=== PATIENT | female | born 1980 | race Hispanic/Latino ===

== ENCOUNTER 2021-02-05 09:20 | Emergency (ER) | payer SELFPAY ==
--- NOTE | 2021-02-05 10:32 | EDPHYS ---
Physician Documentation [facility] Name: Maria Del Rosario Gandhi Age: 40 yrs Sex: Female : 1980 Arrival Date: 02/05/2021 Time: 09:21 Bed 7 Private MD: ED Physician Cameron Son HPI: 02/05 10:18 This 40 yrs old Female presents to ER via Ambulatory with complaints of rn Allergic Reaction. 10:18 The patient presents with localized swelling. Onset: The symptoms/episode rn began/occurred yesterday. Associated signs and symptoms: Pertinent positives: swelling, Pertinent negatives: Altered mental status chest pain, hives, shortness of breath, Syncope. Possible causes: The patient has no known obvious cause for the symptoms. At home the patient or guardian has treated the symptoms with Benadryl. Severity of symptoms: At their worst the symptoms were mild in the emergency department the symptoms are unchanged. The patient has not experienced similar symptoms in the past. Reports began with itching and burning after using a new mascara yesterday, no drainage, no foreign body sensation, + both areas around eyes with mild swelling, no hives to any other part of body. No sob or chest pain.. 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 ca1 Historical: - Allergies: 09:31 Toradol; aa5 - Home Meds: 09:31 None [Active]; aa5 - PMHx: 09:31 None; aa5 - PSHx: 09:31 ; Cholecystectomy; Hysterectomy; aa5 - Immunization history:: Adult Immunizations unknown. - Social history:: Smoking status: Patient denies any tobacco usage or history of. - Family history:: not pertinent. - Hospitalizations: : No recent hospitalization is reported. ROS: 10:18 Constitutional: Negative for fever, chills, and weight loss, Eyes: Negative for injury, rn + mild periocular swelling Cardiovascular: Negative for chest pain, palpitations, and edema, Respiratory: Negative for shortness of breath, cough, wheezing, and pleuritic chest pain, Abdomen/GI: Negative for abdominal pain, nausea, vomiting, diarrhea, and constipation, MS/Extremity: Negative for injury and deformity, Skin: Negative for injury, rash, and discoloration, Neuro: Negative for headache, weakness, numbness, tingling, and seizure. Exam: 10:18 Constitutional: This is a well developed, well nourished patient who is awake, alert, rn and in no acute distress. Head/Face: Normocephalic, atraumatic. Eyes: Pupils equal round and reactive to light, extra-ocular motions intact. Conjunctiva and sclera are non-icteric and not injected. Cornea within normal limits. + mild periorbital swelling without warmth or erythema. Vital Signs: 09:30 BP 124 / 90; Pulse 78; Resp 20 S; Temp 98.4(O); Pulse Ox 100% on R/A; Weight 60.78 kg aa5 (R); Height 4 ft. 11 in. (149.86 cm) (R); 10:45 BP 135 / 91; Pulse 81; Resp 16 S; Pulse Ox 100% on R/A; ca1 09:30 Body Mass Index 27.06 (60.78 kg, 149.86 cm) aa5 MDM: 09:59 Patient medically screened. rn 10:30 Differential diagnosis: allergic reaction. Data reviewed: vital signs, nurses notes, rn and as a result, I will discharge patient. Counseling: I had a detailed discussion with the patient and/or guardian regarding: the historical points, exam findings, and any diagnostic results supporting the discharge/admit diagnosis, the need for outpatient follow up, to return to the emergency department if symptoms worsen or persist or if there are any questions or concerns that arise at home. Response to treatment: There is no appreciated change of the patient's symptoms at this time. Special discussion: I discussed with the patient/guardian in detail that at this point there is no indication for admission to the hospital. It is understood, however, that if the symptoms persist or worsen the patient needs to return immediately for re-evaluation. Administered Medications: 10:26 Drug: SOLU-Medrol (methylPREDNISolone sodium succinate) 125 mg Route: IM; Site: left ca1 gluteus; 10:45 Follow up: Response: No adverse reaction ca1 Disposition: 02/05/21 10:31 Discharged to Home. Impression: Localized allergic reaction. - Condition is Stable. - Prescriptions for Prednisone 20 mg Oral Tablet - take 3 tablet by ORAL route once daily for 5 days; 15 tablet. - Medication Reconciliation Form, Thank You Letter, Antibiotic Education, Prescription Opioid Use, Work release form form. - Follow up: Private Physician; When: As needed; Reason: Recheck today's complaints, Re-evaluation by your physician. - Problem is new. - Symptoms have improved. Signatures: Cameron Son MD MD rn Calderon, Audri, RN RN aa5 Gila Camp RN RN ca1 Corrections: (The following items were deleted from the chart) 10:45 10:31 02/05/2021 10:31 Discharged to Home. Impression: Localized allergic reaction. ca1 Condition is Stable. Forms are Medication Reconciliation Form, Thank You Letter, Antibiotic Education, Prescription Opioid Use. Follow up: Private Physician; When: As needed; Reason: Recheck today's complaints, Re-evaluation by your physician. Problem is new. Symptoms have improved. rn
--- NOTE | 2021-02-05 10:32 | ER ---
Nurse's Notes [facility] Name: Maria Del Rosario Gandhi Age: 40 yrs Sex: Female : 1980 Arrival Date: 02/05/2021 Time: 09:21 Bed 7 Private MD: Diagnosis: Localized allergic reaction Presentation: 02/05 09:30 Chief complaint: Patient states: "I borrowed a mascara 2 days ago and yesterday morning aa5 I woke up with my eyes all swollen and this morning they are still swollen and I kept taking Benadryl during the night because I was itching". Pt denies SOB. 09:30 Coronavirus screen: At this time, the client does not indicate any symptoms associated aa5 with coronavirus-19. Ebola Screen: Patient negative for fever greater than or equal to 101.5 degrees Fahrenheit, and additional compatible Ebola Virus Disease symptoms. Onset: The symptoms/episode began/occurred 1 day(s) ago. Anaphylaxis evaluation, no signs or symptoms of anaphylaxis were noted. Initial Sepsis Screen: Does the patient meet any 2 criteria? No. Patient's initial sepsis screen is negative. Does the patient have a suspected source of infection? No. Patient's initial sepsis screen is negative. Risk Assessment: Do you want to hurt yourself or someone else? Patient reports no desire to harm self or others. 09:30 Acuity: BLAYNE 4 aa5 09:30 Method Of Arrival: Ambulatory aa5 09:31 Onset of symptoms was February 04, 2021. 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 ca1 Historical: - Allergies: : Toradol; aa5 - Home Meds: : None [Active]; aa5 - PMHx: :31 None; aa5 - PSHx: :31 ; Cholecystectomy; Hysterectomy; aa5 - Immunization history:: Adult Immunizations unknown. - Social history:: Smoking status: Patient denies any tobacco usage or history of. - Family history:: not pertinent. - Hospitalizations: : No recent hospitalization is reported. Screenin:00 Abuse screen: Denies threats or abuse. Denies injuries from another. Nutritional ca1 screening: No deficits noted. Tuberculosis screening: No symptoms or risk factors identified. Fall Risk None identified. Assessment: 10:00 General: Appears in no apparent distress. comfortable, Behavior is calm, cooperative, ca1 appropriate for age. Pain: Denies pain. Neuro: Level of Consciousness is awake, alert, obeys commands, Oriented to person, place, time, situation. Respiratory: Airway is patent Respiratory effort is even, unlabored, Respiratory pattern is regular, symmetrical, Breath sounds are clear bilaterally. EENT: Eyes Edi upper and lower eyelids swelling. Derm: Skin is intact, is healthy with good turgor, Skin is pink, warm \\T\\ dry. Musculoskeletal: Circulation, motion, and sensation intact. Capillary refill < 3 seconds. 10:45 Reassessment: Patient appears in no apparent distress at this time. Patient is alert, ca1 oriented x 3, equal unlabored respirations, skin warm/dry/pink. Vital Signs: 09:30 BP 124 / 90; Pulse 78; Resp 20 S; Temp 98.4(O); Pulse Ox 100% on R/A; Weight 60.78 kg aa5 (R); Height 4 ft. 11 in. (149.86 cm) (R); 10:45 BP 135 / 91; Pulse 81; Resp 16 S; Pulse Ox 100% on R/A; ca1 09:30 Body Mass Index 27.06 (60.78 kg, 149.86 cm) aa5 ED Course: 09:21 Patient arrived in ED. am2 09:30 Arm band placed on. aa5 09:33 Triage completed. aa5 09:59 Cameron Son MD is Attending Physician. rn 10:00 Patient has correct armband on for positive identification. Bed in low position. Call ca1 light in reach. Side rails up X 1. Pulse ox on. NIBP on. 10:08 Gila Camp, JUSTINE is Primary Nurse. ca1 10:44 No provider procedures requiring assistance completed. Patient did not have IV access ca1 during this emergency room visit. Administered Medications: 10:26 Drug: SOLU-Medrol (methylPREDNISolone sodium succinate) 125 mg Route: IM; Site: left ca1 gluteus; 10:45 Follow up: Response: No adverse reaction ca1 Outcome: 10:31 Discharge ordered by . rn 10:45 Discharged to home ambulatory. ca1 10:45 Condition: stable 10:45 Discharge instructions given to patient, Instructed on discharge instructions, follow up and referral plans. medication usage, Demonstrated understanding of instructions, follow-up care, medications, Prescriptions given X 1. 10:45 Patient left the ED. ca1 Signatures: Cameron Son MD MD rn Calderon, Audri RN RN aa5 Cookie Monaco Cheryl RN RN ca1 Corrections: (The following items were deleted from the chart) 09:33 09:31 60.78 kg Reported; Height 4 ft. 11 in. Reported; BMI: 27.0; adrian [email or web address]
[2021-02-05] MEDS ORDERED: METHYLPREDNISOLONE 125 MG INJ ONE (10:42)
[2021-02-05 10:50] VITALS: TEMP 98.4; O2SAT 100
[2021-02-05 10:51] VITALS: BP 135/91
== END 2021-02-05 10:45 | disposition home or self-care (01) ==
LOC: ER 09:20
DX: R22.9 Localized swelling, mass and lump, unspecified (principal); Z88.5 Allergy status to narcotic agent
CPT/HCPCS: 96372; 99283; J2930

== ENCOUNTER 2023-07-10 08:28 | Emergency (ER) | payer BC ==
--- OUTSIDE RECORDS SUMMARY | 2023-07-10 08:35 | XMS REPORT | Continuity of Care Document ---
:1980 Author Organization [facility] t Address [address] [place] [address] Care Team Providers Name Role Phone Unavailable Unavailable Unavailable Problems This patient has no known problems. Allergies, Adverse Reactions, Alerts This patient has no known allergies or adverse reactions. Medications This patient has no known medications. Procedures This patient has no known procedures. Results Test Description Test Time Test Comments Results Result Comments Source MUMPS IgG AND IgM 2021-12-12 23:06:48 Test Item Value Reference Range Interpretation Comme nts MUMPS VIRUS IgG (test code 15.0 AU/mL I NTERPRETIVE INFORMATION: Mumps = 01416) Ab, IgG by BERNARDO 8.9 AU/mL or less .... Negative - No significant level of detect able IgG mumps virus antibody 9.0-10.9 AU/mL ....... Equivoc al - Repeat testing in 10-1 4 days may be helpful 11.0 AU /mL or greater: Positive - IgG antibody to mumps virus detected, which may indicate a cur rent or past exposure/ immun ization to mumps virus. The best evidence for current infecti on is a significant roscoe nge on two appropriately t imed specimens, where both test s are done in the same laboratory at the same time. TESTING PERFORM ED AT [facility] [address] [place] [id number] [place] [id number] CLIA N O. [id number] MUMPS VIRUS IgM (test code 1.57 IV See_Comment H I NTERPRETIVE INFORMATION: Mumps = 4587) Virus Antibody, IgM 0.79 IV or less: Negative - No significant level of detect able IgM antibody to mumps virus. 0.80 - 1.20 IV: Equivocal - Bor derline levels of IgM antibody to mumps virus. Repeat testing in 10-14 days may be helpful. 1.2 1 IV or greater: Positive - Pres ence of IgM antibody to mum ps virus detected, which may indic ate a current or recent infectio n. However, low levels of IgM antibody may occasionally pe rsist for more than 12 months post-infection or immunization. T ESTING PERFORMED AT [facility] [place] [address], [place] [address] [place]. [id number] CL IA NO. [id number] [Automated mess age] The system which generated this result transmitted ref erence range: <=0.79. The ref erence range was not used to int erpret this result as normal/abnor mal. RUBEOLA IgG [id number] 15:19:24 Test Item Value Reference Range Interpretation Comments RUBEOLA IgG 231.0 AU/ML SEE BELOW INTERPRETATION RUBEOLA ANTIBODY (test IgG NEGATIVE . . . . . . code = 49098) . . . . . . AU /ML <13.5 EQUIVOCAL. . . . . . . . . . . . AU/ML 1 3.5-16.4 NOTE: CONSIDER RETESTING IN A CLINICALLY SUITABLE PERIOD OF TIME, NO SOONER THAN 1-2 WEEKS. POSITIVE . . . . . . . . . . . . AU/ML > =16.5 VARICELLA ZOSTER [id number] 15:19:24 Test Item Value Reference Range Interpretation Comments VARICELLA ZOSTER 1043 INDEX SEE BELOW INTERPRETA TION VZV IgG IgG (test code = NEGATIVE . . . . . . . . 76333) . . . . INDEX < 135 EQUIVOCAL. . . . . . . . . . . . INDEX 1 35-164 NOTE: CONSIDER RETESTING IN A CLINICALLY SUITABLE PERIOD OF TIME, NO SOONER THAN 1-2 WEEKS. POSITIVE . . . . . . . . . . . . INDEX > =165 RUBELLA ANTIBODY [id number] 05:05:45 Test Item Value Reference Range Interpretation Comments RUBELLA ANTIBODY 52 IU/ML SEE BELOW INTERPRETA TION RUBELLA SCREEN (test code = IgG 4600) NON-REACTIVE/NO N-IMMUNE . . . . . . . IU/ ML <10 REACTIVE/IMMUNE . . . . . . . . . . . IU/ ML >=10 RUBELLA IgG INTERP REACTIVE REACTIVE UNLESS O THERWISE (test code = 50554) INDICATE D, ALL TESTING [facility]FORMED [facility] [address] [facility] [address] LABOR ATORY DIRECTOR: ELIDIA LOREDO M.D. NED NUMBER [id number] CAP ACCREDITATION N O. [id number]
--- NOTE | 2023-07-10 09:16 | RAD REPORT ---
EXAM DESCRIPTION: CT - Head Brain Wo Cont - 07/10/2023 8:55 am CLINICAL HISTORY: NUMBNESS COMPARISON: No comparisons TECHNIQUE: Noncontrast head CT images were obtained without IV contrast. Multiplanar reformats were generated and reviewed. All CT scans are performed using dose optimization technique as appropriate and may include automated exposure control or mA/KV adjustment according to patient size. FINDINGS: No intracranial hemorrhage, mass, or edema. Midline structures are unremarkable. Normal ventricular caliber for age. Hernández-white matter differentiation is preserved, without evidence of acute infarct. No abnormal extra- axial fluid collections. Mastoid air cells and visualized portions of the paranasal sinuses are clear. No acute bony findings. IMPRESSION: No evidence of an acute intracranial process.
[2023-07-10 09:24] LABS: Absolute Lymphocytes (CBC) 1.4 K/uL (0.7-4.9); Hematocrit 37.3 % (36.0-45.0); Lymphocytes % 26.5 % (15.3-44.8); MPV 8.3 fL (7.6-11.3); Platelets 293 thou/uL (152-406)
[2023-07-10] MEDS ORDERED: ASPIRIN 81 MG CHEWABLE TABLET ONE (09:34)
[2023-07-10] MEDS ORDERED: DIAZEPAM 5 MG TABLET ONE (09:34)
[2023-07-10 09:35] LABS: Protime INR 0.94
[2023-07-10 09:44] LABS: ALT/SGPT 31 U/L (13-56); AST/SGOT 19 U/L (15-37); Albumin 3.5 g/dL (3.4-5.0); Alkaline Phosphatase 67 U/L (45-117); BUN Blood Urea Nitrogen 13 mg/dL (7-18); Bicarbonate 23 mEq/L (21-32); Bilirubin Direct 0.1 mg/dL (0-0.2); Bilirubin Indirect, Calculated 0.3 mg/dL (0.2-0.8); Bilirubin Total 0.4 mg/dL (0.2-1.0); Glomerular Filtration Rate 104 ml/min (=/>90); Glucose Level 101 mg/dL (74-106); NT PRO-BNP 36 pg/mL (<125); Potassium 3.8 mEq/L (3.5-5.1); Protein, Total 7.4 g/dL (6.4-8.2); Sodium Level 137 mEq/L (136-145); Troponin High Sensitivity < 3.0 pg/mL (<58.9)
--- NOTE | 2023-07-10 10:21 | RAD REPORT ---
EXAM DESCRIPTION: [place] Single View07/10/2023 9:51 am CLINICAL HISTORY: CHEST PAIN COMPARISON: No comparisons TECHNIQUE: Portable AP view of the chest. FINDINGS: Streaky bibasilar opacities, which may reflect atelectasis or early pneumonia. No pneumot horax or effusion. The cardiomediastinal contours are unremarkable. IMPRESSION: Streaky bibasilar mild opacities which may reflect atelectasis or early pneumonia.
--- NOTE | 2023-07-10 11:02 | EDPHYS ---
Physician Documentation [facility] Name: Maria Del Rosario Joseph Age: 42 yrs Sex: Female : 1980 Arrival Date: 07/10/2023 Time: 08:28 Bed 16 Private MD: MARGAUX Physician Wili Garcia HPI: 07/10 11:54 This 42 yrs old Female presents to ER via Ambulatory with complaints of snw Numbness Of Arm, Leg numbness, Chest Tightness, Shortness Of Breath. 11:54 The patient or guardian reports airway noise, cough, upper resp symptoms x 1 week, this snw am pt awoke with chest discomfort and numbness down left extremities. Onset: The symptoms/episode began/occurred gradually, 1 week(s) ago, and became persistent. Associated signs and symptoms: Pertinent positives: nausea, rhinorrhea, cough. Severity of symptoms: At their worst the symptoms were moderate. It is unknown whether or not the patient has had similar symptoms in the past. The patient has not recently seen a physician. hx of anxiety and RA. Historical: - Allergies: 08:38 Toradol; ll1 - PMHx: 08:38 RA; ll1 - PSHx: 08:38 Cholecystectomy; section; hysterectomy; ll1 - Immunization history:: Adult Immunizations up to date. - Social history:: Smoking status: Reported history of juuling and/or vaping. Patient/guardian denies using tobacco, the patient reports quitting approximately 3 years ago. ROS: 10:02 Eyes: Negative for injury, pain, redness, and discharge, ENT: Negative for injury, snw pain, and discharge, Neck: Negative for injury, pain, and swelling, 10:02 Abdomen/GI: Negative for abdominal pain, nausea, vomiting, diarrhea, and constipation, Back: Negative for injury and pain, : Negative for injury, bleeding, discharge, and swelling, MS/Extremity: Negative for injury and deformity, Skin: Negative for injury, rash, and discoloration, 10:02 Constitutional: Positive for body aches, 10:02 Cardiovascular: Positive for chest pain, 10:02 Respiratory: Positive for shortness of breath, at rest. 10:02 Neuro: Positive for numbness, of the left leg and left arm, Exam: 10:01 Constitutional: This is a well developed, well nourished patient who is awake, alert, snw and in no acute distress. Head/Face: Normocephalic, atraumatic. Eyes: Pupils equal round and reactive to light, extra-ocular motions intact. Lids and lashes normal. Conjunctiva and sclera are non-icteric and not injected. Cornea within normal limits. Periorbital areas with no swelling, redness, or edema. ENT: Nares patent. No nasal discharge, no septal abnormalities noted. Tympanic membranes are normal and external auditory canals are clear. Oropharynx with no redness, swelling, or masses, exudates, or evidence of obstruction, uvula midline. Mucous membranes moist. Neck: Trachea midline, no thyromegaly or masses palpated, and no cervical lymphadenopathy. Supple, full range of motion without nuchal rigidity, or vertebral point tenderness. No Meningismus. Chest/axilla: Normal chest wall appearance and motion. Nontender with no deformity. No lesions are appreciated. Cardiovascular: Regular rate and rhythm with a normal S1 and S2. No gallops, murmurs, or rubs. Normal PMI, no JVD. No pulse deficits. 10:01 Abdomen/GI: Soft, non-tender, with normal bowel sounds. No distension or tympany. No guarding or rebound. No evidence of tenderness throughout. Back: No spinal tenderness. No costovertebral tenderness. Full range of motion. Skin: Warm, dry with normal turgor. Normal color with no rashes, no lesions, and no evidence of cellulitis. MS/ Extremity: Pulses equal, no cyanosis. Neurovascular intact. Full, normal range of motion. Neuro: Awake and alert, GCS 15, oriented to person, place, time, and situation. Cranial nerves II-XII grossly intact. Motor strength 5/5 in all extremities. Sensory grossly intact. Cerebellar exam normal. Normal gait. 10:01 Respiratory: the patient does not display signs of respiratory distress, Respirations: normal, Breath sounds: are clear throughout, 10:01 Psych: Behavior/mood is pleasant, anxious, Oriented to Vital Signs: 08:39 BP 158 / 117; Pulse 69; Resp 16; Temp 97.9; Pulse Ox 99% ; Weight 63.05 kg; Height 4 ll1 ft. 11 in. ; Pain 2/10; 09:00 BP 136 / 104; Pulse 71; Resp 18; Pulse Ox 97% on R/A; eh3 09:30 BP 135 / 98; Pulse 67; Resp 18; Pulse Ox 98% on R/A; eh3 10:00 BP 125 / 95; Pulse 66; Resp 18; Pulse Ox 96% on R/A; eh3 10:30 BP 118 / 86; Pulse 65; Resp 18; Pulse Ox 96% on R/A; eh3 08:39 Body Mass Index 28.07 (63.05 kg, 149.86 cm) ll1 08:39 Pain Scale: Adult ll1 MDM: 08:34 Patient medically screened. snw 11:53 Differential diagnosis: bronchitis, flu, URI, asthma. Data reviewed: vital signs, snw nurses notes, lab test result(s), EKG, radiologic studies. I considered the following discharge prescriptions or medication management in the emergency department Medications were administered in the Emergency Department. See MAR. Counseling: I had a detailed discussion with the patient and/or guardian regarding the historical points, exam findings, and any diagnostic results supporting the discharge/admit diagnosis, lab results, radiology results, the need for outpatient follow up, to return to the emergency department if symptoms worsen or persist or if there are any questions or concerns that arise at home. Response to treatment: the patient's symptoms have markedly improved after treatment. Special discussion: Based on the history and exam findings, there is no indication for further emergent testing or inpatient evaluation. I discussed with the patient/guardian the need to see the primary care provider for further evaluation of the symptoms. 07/10 08:47 Order name: Basic Metabolic Panel; Complete Time: 09:46 snw 07/10 08:47 Order name: CBC with Diff; Complete Time: 09:34 snw 07/10 08:47 Order name: D-Dimer; Complete Time: 09:41 snw 07/10 08:47 Order name: LFT's; Complete Time: 09:46 snw 07/10 08:47 Order name: Magnesium; Complete Time: 09:46 snw 07/10 08:47 Order name: NT PRO-BNP; Complete Time: 09:46 snw 07/10 08:47 Order name: PT-INR; Complete Time: 09:41 snw 07/10 08:47 Order name: Troponin HS; Complete Time: 09:46 snw 07/10 08:47 Order name: XRAY Chest (1 view); Complete Time: 10:44 snw 07/10 08:47 Order name: CT Head Brain wo Cont; Complete Time: 09:28 snw 07/10 08:47 Order name: EKG; Complete Time: 08:48 snw 07/10 08:47 Order name: Cardiac monitoring; Complete Time: 09:18 snw 07/10 08:47 Order name: EKG - Nurse/Tech; Complete Time: 09:27 snw 07/10 08:47 Order name: IV Saline Lock; Complete Time: 09:18 snw 07/10 08:47 Order name: Labs collected and sent; Complete Time: 09:18 snw 07/10 08:47 Order name: O2 Per Protocol; Complete Time: 09:18 snw 07/10 08:47 Order name: O2 Sat Monitoring; Complete Time: 09:18 snw EC:30 Rate is 66 beats/min. Rhythm is regular. QRS [place] is Normal. NV interval is normal. QRS snw interval is normal. QT interval is normal. Clinical impression: NSR w/ Non-specific ST/T Changes. Administered Medications: 09:27 Drug: Diazepam PO 10 mg PO once Route: PO; 3 11:07 Follow up: Response: No adverse reaction 3 09:27 Drug: Aspirin PO Chewable Tablet 324 mg PO once; 81 mg tablets x 4 Route: PO; eh3 11:08 Follow up: Response: No adverse reaction 3 10:55 Drug: Rocephin IV 1 grams IV at calculated rate once; Given slow IV push per pharmacy eh3 instructions Route: IV; Rate: calculated rate; Site: right antecubital; 11:10 Follow up: Response: No adverse reaction; IV Status: Completed infusion; IV Intake: [id number] 10:55 Drug: AZITHromycin PO 500 mg PO once Route: PO; 3 11:10 Follow up: Response: No adverse reaction eh3 Disposition Summary: 07/10/23 11:02 Discharge Ordered Notes: Location: Home snw Condition: Stable snw Diagnosis - Other pneumonia, unspecified organism snw Followup: snw - With: Emergency Department - When: As needed - Reason: Worsening of condition Followup: snw - With: Private Physician - When: Today - Reason: Recheck today's complaints, Continuance of care, Re-evaluation by your physician Discharge Instructions: - Discharge Summary Sheet snw - Community-Acquired Pneumonia, Adult snw Forms: - Work release form snw - Medication Reconciliation Form snw - Thank You Letter snw - Antibiotic Education snw - Prescription Opioid Use snw - Patient Portal Instructions snw - Leadership Thank You Letter snw Prescriptions: - albuterol sulfate 90 mcg/actuation Inhalation HFA Aerosol Inhaler - inhale 2 inhalation INHALATION route every 8 hours as needed for shortness of snw breath or wheezing; 1 Unspecified; Refills: 0, Product Selection Permitted - Zithromax 500 mg Oral Tablet - take 1 tablet ORAL route once daily for 5 days; 5 tablet; Refills: 0, Product snw Selection Permitted Signatures: Dispatcher [employer] EDMounika Young FNP-C FNP-[place] Elida Whaley, RN RN ll1 Chhaya Wooten RN RN eh3
--- NOTE | 2023-07-10 11:02 | ER ---
Nurse's Notes [facility] Name: Maria Del Rosario Joseph Age: 42 yrs Sex: Female : 1980 Arrival Date: 07/10/2023 Time: 08:28 Bed 16 Private MD: Diagnosis: Other pneumonia, unspecified organism Presentation: 07/10 08:39 Chief complaint: Patient states: SOB, slight cough, chest pressure since Sunday. Awoke ll1 today with L arm and leg felt numb 5 AM. + fatigue, dizzy today. Coronavirus screen: Client denies travel out of the [place] in the last 14 days. cough unrelated to allergies, difficulty breathing, fatigue, shortness of breath, Client presents with at least one sign or symptom that may indicate coronavirus-19. Standard/surgical mask placed on the client. Ebola Screen: Patient denies travel to an Ebola-affected area in the 21 days before illness onset. Initial Sepsis Screen: Does the patient meet any 2 criteria? No. Patient's initial sepsis screen is negative. Does the patient have a suspected source of infection? Yes: Productive cough/pneumonia. Risk Assessment: Do you want to hurt yourself or someone else? Patient reports no desire to harm self or others. Onset of symptoms was July 06, 2023. 08:39 Method Of Arrival: Ambulatory ll1 08:39 Acuity: BLAYNE 3 ll1 Triage Assessment: 08:41 General: Appears uncomfortable, Behavior is calm, cooperative, appropriate for age. ll1 Pain: Complains of pain in chest Pain currently is 2 out of 10 on a pain scale. Neuro: Reports dizziness, numbness in left arm and left leg weakness. Cardiovascular: Reports chest pain, shortness of breath. Respiratory: Reports shortness of breath cough that is. Historical: - Allergies: 08:38 Toradol; ll1 - PMHx: 08:38 RA; ll1 - PSHx: 08:38 Cholecystectomy; section; hysterectomy; ll1 - Immunization history:: Adult Immunizations up to date. - Social history:: Smoking status: Reported history of juuling and/or vaping. Patient/guardian denies using tobacco, the patient reports quitting approximately 3 years ago. Screenin:00 [facility] ED Fall Risk Assessment (Adult) Score/Fall Risk Level 0 - 2 = Low Risk. Abuse eh3 screen: Denies threats or abuse. Denies injuries from another. Nutritional screening: No deficits noted. Tuberculosis screening: No symptoms or risk factors identified. Assessment: 09:00 General: Appears in no apparent distress. uncomfortable, Behavior is calm, cooperative, eh3 appropriate for age. Pain: Complains of pain in chest Pain radiates to left arm Pain began 4 hours ago. Neuro: Level of Consciousness is awake, alert, obeys commands, Oriented to person, place, time, situation, Speech is normal, Facial symmetry appears normal, Pupils are PERRLA, Reports numbness in left arm and left leg. Cardiovascular: Capillary refill < 3 seconds Patient's skin is warm and dry. Respiratory: Airway is patent Respiratory effort is even, unlabored, Respiratory pattern is regular, symmetrical. GI: Abdomen is round non-distended. Derm: Skin is pink, warm \T\ dry. Musculoskeletal: Range of motion: intact in all extremities. 10:00 Reassessment: Patient appears in no apparent distress at this time. Patient and/or 3 family updated on plan of care and expected duration. Pain level reassessed. Patient is alert, oriented x 3, equal unlabored respirations, skin warm/dry/pink. 11:00 Reassessment: Patient appears in no apparent distress at this time. Patient and/or eh3 family updated on plan of care and expected duration. Pain level reassessed. Patient is alert, oriented x 3, equal unlabored respirations, skin warm/dry/pink. Vital Signs: 08:39 BP 158 / 117; Pulse 69; Resp 16; Temp 97.9; Pulse Ox 99% ; Weight 63.05 kg; Height 4 ll1 ft. 11 in. ; Pain 2/10; 09:00 BP 136 / 104; Pulse 71; Resp 18; Pulse Ox 97% on R/A; eh3 09:30 BP 135 / 98; Pulse 67; Resp 18; Pulse Ox 98% on R/A; eh3 10:00 BP 125 / 95; Pulse 66; Resp 18; Pulse Ox 96% on R/A; eh3 10:30 BP 118 / 86; Pulse 65; Resp 18; Pulse Ox 96% on R/A; eh3 08:39 Body Mass Index 28.07 (63.05 kg, 149.86 cm) ll1 08:39 Pain Scale: Adult ll1 ED Course: 08:32 Patient arrived in ED. mr 08:35 Mounika Fernandez[facility] snw 08:35 Wili Garcia MD is Attending Physician. snw 08:38 Arm band placed on Patient placed in an exam room, on a stretcher. ll1 08:41 Triage completed. ll1 08:57 CT Head Brain wo Cont In Process Unspecified. EDMS 09:00 Chhaya Wooten, RN is Primary Nurse. eh3 09:00 Patient has correct armband on for positive identification. Bed in low position. Call eh3 light in reach. Side rails up X2. Provided Education on: Use of call zapata. Client placed on continuous cardiac and pulse oximetry monitoring. NIBP monitoring applied. 09:00 Inserted saline lock: 22 gauge in left antecubital area, using aseptic technique. eh3 Completed by college staff. Patient maintains SpO2 saturation greater than 95% on room air. 09:53 XRAY Chest (1 view) In Process Unspecified. EDMS 11:10 No provider procedures requiring assistance completed. IV discontinued, intact, eh3 bleeding controlled, No redness/swelling at site. Pressure dressing applied. Administered Medications: 09:27 Drug: Diazepam PO 10 mg PO once Route: PO; eh3 11:07 Follow up: Response: No adverse reaction eh3 09:27 Drug: Aspirin PO Chewable Tablet 324 mg PO once; 81 mg tablets x 4 Route: PO; eh3 11:08 Follow up: Response: No adverse reaction eh3 10:55 Drug: Rocephin IV 1 grams IV at calculated rate once; Given slow IV push per pharmacy eh3 instructions Route: IV; Rate: calculated rate; Site: right antecubital; 11:10 Follow up: Response: No adverse reaction; IV Status: Completed infusion; IV Intake: 42yyan2 10:55 Drug: AZITHromycin PO 500 mg PO once Route: PO; eh3 11:10 Follow up: Response: No adverse reaction eh3 Medication: 11:10 VIS not applicable for this client. eh3 Intake: 11:10 IV: 10ml; Total: 10ml. eh3 Outcome: 11:02 Discharge ordered by . snw 11:10 Discharged to home ambulatory, with family, eh3 11:10 Condition: stable 11:10 Discharge instructions given to patient, Instructed on discharge instructions, follow up and referral plans. medication usage, Demonstrated understanding of instructions, follow-up care, medications, Prescriptions given X 2, 11:23 Patient left the ED. 3 Signatures: Dispatcher [employer] EDMounika Young, SUNNI BUTCHER FISH-Deja Pozo, Reg Reg Maria G Gastontwyla, RN RN ll1 Chhaya Wooten, RN RN 3 Corrections: (The following items were deleted from the chart) 09:59 09:18 Chhaya Wooten RN is Primary Nurse. 3 eh3
[2023-07-10] MEDS ORDERED: CEFTRIAXONE 1000 MG/VIAL ONE (11:06)
[2023-07-10] MEDS ORDERED: AZITHROMYCIN 250 MG TAB ONE (11:06)
[2023-07-10 11:31] VITALS: TEMP 97.9
[2023-07-10 11:34] VITALS: O2SAT 96
[2023-07-10 11:36] VITALS: BP 118/86
--- NOTE | 2023-07-10 12:48 | EKG ---
Test Date: 2023-07-10 Test Time: 09:30:59 [employer] Installer: ELMIRA MEASUREMENT RESULTS: Intervals: Rate: 66 KS: 162 QRSD: 84 QT: 422 QTc: 442 [place]: P: 50 KS: 162 QRS: 78 T: 60 INTERPRETIVE STATEMENTS: Normal sinus rhythm Normal ECG No previous ECG available for comparison Electronically Signed On 07-10-23 12:47:55 CDT by Amando Piña
== END 2023-07-10 11:23 | disposition home or self-care (01) ==
LOC: ER 08:28
DX: J18.8 Other pneumonia, unspecified organism (principal); Z88.5 Allergy status to narcotic agent
CPT/HCPCS: 93005; 85025; 80048; 36415; 83735; 85610; 85379; 80076; 84484; 83880; 70450; 71045; 96374; 99285; J0696

== ENCOUNTER 2024-01-02 17:32 | Inpatient (IN) | payer BC ==
--- OUTSIDE RECORDS SUMMARY | 2024-01-02 17:35 | XMS REPORT | Continuity of Care Document ---
Author Name Unknown Address [address] [facility] [address] [place] [address] [facility] [address] [facility] [address] [place] [address] Care Team Providers Care Guide Escort Name Role Phone [email or web address] Attending Clinician Unavaila ble [email or web address] Admitting Clinician Unavaila ble Encounters Start Date/Time End Date/Time Encounter Type Admission Type Attending Clinicians Care Facility Care Department Encounter ID Source 2023-08-07 00:00:00 2023-08-07 00:00:00 Outpatient [email or web address] [email or web address]_S PRIV PRIV [id number] [facility] 2023-08-06 00:00:00 2023-08-06 00:00:00 Outpatient [email or web address] [email or web address]_S PRIV PRIV [id number] [facility] Results Test Description Test Time Test Comments Results Result Co mments Source RUBEOLA IgG [id number] 15:19:24* Test Item Value Reference Range Interpretation Comme nts RUBEOLA IgG ANTIBODY (test code = 91623) 231.0 AU/ML SEE BELOW INTERPRETATION R UBEOLA IgG NEGATIVE . . . . . . . . . . . . AU/ML <13.5 EQUIVOCAL. . . . . . . . . . . . AU/ML 13.5-16.4 NOTE: CONSIDER RETESTING IN A CLINICALLY SUITABLE PERIOD OF TIME, NO SOONER THAN 1-2 WEEKS. POSITIVE . . . . . . . . . . . . AU/ML >=16.5 VARICELLA ZOSTER [id number] 15:19:24* Test Item Value Reference Range Interpretation Comme nts VARICELLA ZOSTER IgG (test code = 59143) 1043 INDEX SEE BELOW INTERPRETATION V ZV IgG NEGATIVE . . . . . . . . . . . . INDEX <135 EQUIVOCAL. . . . . . . . . . . . INDEX 135-164 NOTE: CONSIDER RETESTING IN A CLINICALLY SUITABLE PERIOD OF TIME, NO SOONER THAN 1-2 WEEKS. POSITIVE . . . . . . . . . . . . INDEX >=165 RUBELLA ANTIBODY [id number] 05:05:45* Test Item Value Reference Range Interpretation Comme nts RUBELLA ANTIBODY SCREEN (test code = 4600) 52 IU/ML SEE BELOW INTERPRETATION R UBELLA IgG NON-REACTIVE/NON-IMMUNE . . . . . . . IU/ML <10 REACTIVE/IMMUNE . . . . . . . . . . . IU/ML >=10 RUBELLA IgG INTERP (test code = 61317) REACTIVE REACTIVE UNLESS OTHER [place] INDICATED, ALL TESTING PERFORMED [facility] [address] [place] [id number] SPOOLING OPERATOR: ELIDIA LOREDO M.D. [place] NUMBER [id number] [facility] [place]. [id number]
[2024-01-02 18:14] LABS: Specific Gravity 1.011 (1.005-1.030)
[2024-01-02 18:18] LABS: Specific Gravity 1.011 (1.005-1.030); Sqamous Epithelial <5 /HPF (None Seen); Urine Bacteria <20 /HPF (<20); Urine Bilirubin NEGATIVE (Negative); Urine Blood 1+ (Negative); Urine Clarity Extremely Turbid (Clear); Urine Color Light-Yellow (Yellow); Urine Culture Reflex Order REFLEXED; Urine Glucose NEGATIVE (Negative); Urine Ketones NEGATIVE (Negative); Urine Microscopic Reflex YN ORDER UMIC; Urine Mucus Slight /HPF (None Seen); Urine Nitrite 2+ (Negative); Urine Protein TRACE (Negative); Urine Urobilinogen Normal (Normal); Urine WBC >50 /HPF (<5); Urine WBC Clump Occasional /HPF (None Seen); Urine pH 5.5 (5.0-7.0)
[2024-01-02 18:31] LABS: Absolute Lymphocytes (CBC) 0.4 K/uL (0.7-4.9); Absolute Neutrophil 5.8 K/uL (1.8-8.0); Basophils % 0.2 % (0-1.3); Eosinophils % 0.3 % (0-4.4); Hematocrit 34.5 % (36.0-45.0); Hemoglobin 11.9 g/dL (12.0-15.0); MCH 30.9 pg (27.0-35.0); MCHC 34.4 g/dL (32.0-36.0); MCV 89.7 fL (80-100); MPV 7.8 fL (7.6-11.3); Monocytes % 0.6 % (3.3-12.3); Neutrophils % 92.9 % (41.7-73.7); Nucleated Red Blood Cells % 0.1 % (0-0); Platelets 273 thou/uL (152-406); RBC Red Blood Cell Count 3.85 M/uL (3.86-4.86); Red Cell Distribution Width 13.7 % (12.1-15.2)
[2024-01-02 18:35] LABS: PT Prothrombin Time 12.7 SECONDS (9.5-12.5); PTT, Activated Partial Thromb 24.8 SECONDS (24.3-36.9); Protime INR 1.16
[2024-01-02 18:45] LABS: Albumin 3.4 g/dL (3.4-5.0); Albumin/Globulin Ratio 0.8 (1.1-1.8); Anion Gap 11.3 mEq/L (5.0-15.0); Bilirubin Total 1.8 mg/dL (0.2-1.0); Globulin 4.4 g/dL (2.3-3.5); Potassium 3.3 mEq/L (3.5-5.1); Protein, Total 7.8 g/dL (6.4-8.2)
--- NOTE | 2024-01-02 18:55 | RAD REPORT ---
EXAM DESCRIPTION: [place] Single View01/02/2024 6:42 pm CLINICAL HISTORY: Fever COMPARISON: 2022 FINDINGS: The lungs appear clear of acute infiltrate. The heart is normal size IMPRESSION: No acute abnormalities displayed
[2024-01-02 19:42] LABS: Blood Morphology Comment NOT SEEN (NOT SEEN); Platelet Estimate ADEQ; White Blood Cell Scan OK (OK)
--- NOTE | 2024-01-02 19:42 | RAD REPORT ---
EXAM DESCRIPTION: CT - Abdomen Pelvis W Contrast - 01/02/2024 7:05 pm CLINICAL HISTORY: Abdominal pain/flank pain COMPARISON: none. TECHNIQUE: Computed axial tomography of the abdomen pelvis was obtained. 100 cc Isovue-300 was admin istered intravenously. Oral contrast was not requested which limits evaluation of bowel and appendix All CT scans are performed using dose optimization technique as appropriate and may include automated exposure control or mA/KV adjustment according to patient size. 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 The wall of the right ureters enhance. The spleen, pancreas, adrenals and kidneys unremarkable Normal appendix. No evidence of diverticulitis. An adnexal mass. Cholecystectomy IMPRESSION: Enhancement of the wall of the right ureters probably indicating infection
--- NOTE | 2024-01-02 20:01 | EDPHYS ---
Physician Documentation [facility] Name: Maria Del Rosario Joseph Age: 43 yrs Sex: Female : 1980 Arrival Date: 01/02/2024 Time: 17:32 Bed 13 Private MD: ED Physician Wili Garcia HPI: 01/01 18:39 This 43 yrs old Female presents to ER via Ambulatory with complaints of Fever, kb body aches. 18:39 Pt is a 43 year old female who presents for fever and bodyaches that started yesterday. kb Denies cough, congestion, abd pain, n/v/d. States the pain is worse in her back and she may have a little pressure with urination, but denies any other urinary symptoms. States symptoms improved with tylenol arthritis, but started to return and it is too early to take more. . Historical: - Allergies: 17:45 Toradol; hb - PMHx: 17:45 RA; hb - PSHx: 17:45 section; Cholecystectomy; hysterectomy; hb - Immunization history:: Adult Immunizations up to date. - Social history:: Smoking status: Patient denies any tobacco usage or history of. ROS: 18:38 Constitutional: As per HPI kb Exam: 18:38 Constitutional: This is a well developed, well nourished patient who is awake, alert, kb and in no acute distress. Head/Face: Normocephalic, atraumatic. ENT: Moist Mucous membranes Respiratory: Respirations even and unlabored. No increased work of breathing. Talking in full sentences Abdomen/GI: Soft, non-tender. No distention Skin: Warm, dry with normal turgor. Normal color. MS/ Extremity: Pulses equal, no cyanosis. Neurovascular intact. Full, normal range of motion. Neuro: Awake and alert, GCS 15, oriented to person, place, time, and situation. Moves all extremities. Normal gait. 18:38 Cardiovascular: Rate: tachycardic, 18:38 ECG was reviewed by the Attending Physician. 18:38 Back: CVA tenderness, that is mild, is noted bilaterally, Vital Signs: 17:44 BP 142 / 97; Pulse 144; Resp 20; Temp 99.5(O); Pulse Ox 99% ; Weight 66.22 kg; Height 4 hb ft. 11 in. ; Pain 9/10; 17:58 Temp 99.1(O); ld1 18:09 Temp 99.1(O); ld1 18:28 BP 138 / 85; Pulse 119; Resp 18; Pulse Ox 100% on R/A; ld1 19:27 BP 102 / 70; Pulse 115; Resp 16; Pulse Ox 99% on R/A; ld1 20:30 BP 100 / 71; Pulse 101; Resp 16; Pulse Ox 98% on R/A; me1 21:31 BP 99 / 68; Pulse 111; Resp 16; Pulse Ox 99% on R/A; me1 21:31 BP 91 / 59; Pulse 105; Resp 16; Pulse Ox 99% on R/A; me1 23:15 BP 84 / 63; Pulse 110; Resp 15; Pulse Ox 100% ; vc1 23:46 BP 97 / 59; Pulse 103; Resp 15; Pulse Ox 100% ; vc1 17:44 Body Mass Index 29.49 (66.22 kg, 149.86 cm) hb 17:44 Pain Scale: Adult hb MDM: 17:36 Patient medically screened. kb 18:39 Data reviewed: vital signs, nurses notes. kb 20:54 Differential diagnosis: UTI, flu, covid, pyelonephritis, sepsis. Consideration of kb Admission/Observation Patient was admitted/placed on observation. Escalation of care including admission/observation considered. Management of patient was discussed with the following: Hospitalist: Dr Boss accepts pt for admission. Counseling: I had a detailed discussion with the patient and/or guardian regarding the historical points, exam findings, and any diagnostic results supporting the discharge/admit diagnosis, lab results, radiology results, the need for further work-up and treatment in the hospital. 20:55 ED course: sepsis reevaluation complete. kb 01/01 17:44 Order name: Test, Urine; Complete Time: 18:20 kb 01/01 17:44 Order name: Urinalysis w/ reflexes; Complete Time: 18:29 kb 01/01 17:44 Order name: Flu; Complete Time: 18:36 kb 01/01 17:44 Order name: COVID-19 SARS RT PCR; Complete Time: 18:49 kb 01/01 17:58 Order name: Blood Culture Adult (2) kb 01/01 17:58 Order name: CBC with Diff; Complete Time: 19:43 kb 01/01 17:58 Order name: CMP; Complete Time: 18:49 kb 01/01 17:58 Order name: Lactate w/ 2H reflex if indic.; Complete Time: 18:44 kb 01/01 17:58 Order name: Protime (+inr); Complete Time: 18:36 kb 01/01 17:58 Order name: Ptt, Activated; Complete Time: 18:36 kb 01/01 18:27 Order name: Urine Culture [facility] 01/01 19:42 Order name: CBC Smear Scan; Complete Time: 19:43 EDME 01/01 21:33 Order name: Lactate Sepsis 2 HR Follow-up; Complete Time: 21:36 EDME 01/01 22:32 Order name: Acute Hepatitis Panel [facility] 01/01 22:32 Order name: Acute Hepatitis Panel [facility] 01/01 22:32 Order name: CBC with Automated Diff EDME 01/01 22:32 Order name: CBC with Automated Diff [facility] 01/01 22:32 Order name: Comprehensive Metabolic Panel [facility] 01/01 22:32 Order name: Comprehensive Metabolic Panel [facility] 01/01 22:32 Order name: Protime (+INR) [facility] 01/01 22:32 Order name: Protime (+INR) [facility] 01/01 22:32 Order name: PTT, Activated Partial Thromb EDME 01/01 22:32 Order name: PTT, Activated Partial Thromb [facility] 01/01 17:58 Order name: Chest Single View XRAY; Complete Time: 18:59 kb 01/01 18:29 Order name: CT Abd/Pelvis - IV Contrast Only; Complete Time: 19:43 kb 01/01 22:26 Order name: Abdomen Exam Complete [facility] 01/01 22:26 Order name: Abdomen Exam Complete [facility] 01/01 17:58 Order name: EKG; Complete Time: 17:59 kb 01/01 22:31 Order name: CONS Physician Consult [facility] 01/01 17:58 Order name: Accucheck; Complete Time: 18:27 kb 01/01 17:58 Order name: Cardiac monitoring; Complete Time: 17:59 kb 01/01 17:58 Order name: EKG - Nurse/Tech; Complete Time: 18:46 kb 01/01 17:58 Order name: IV Saline Lock - Large Bore; Complete Time: 18:27 kb 01/01 17:58 Order name: Labs collected and sent; Complete Time: 18:27 kb 01/01 17:58 Order name: O2 Per Protocol; Complete Time: 17:59 kb 01/01 17:58 Order name: O2 Sat Monitoring; Complete Time: 17:59 kb 01/01 17:58 Order name: Vital Signs; Complete Time: 17:59 kb EC:38 Rate is 114 beats/min. Rhythm is regular. QRS [place] is Normal. MN interval is normal at kb 158 msec. QRS interval is normal at 84 msec. QT interval is normal at 435 msec. Administered Medications: 17:58 Drug: Ibuprofen PO 600 mg PO once Route: PO; ld1 23:00 Follow up: Response: No adverse reaction vc1 18:27 Drug: NS 0.9% IV (30 ml/kg) 30 ml/kg IV at bolus once; Sepsis Protocol Route: IV; Rate: ld1 bolus; Site: right antecubital; 20:10 Follow up: Response: No adverse reaction; IV Status: Completed infusion; IV Intake[place] [facility] [place] 20:09 Drug: Rocephin IV 1 grams IV at calculated rate once; Given slow IV push per pharmacy me1 instructions Route: IV; Rate: calculated rate; Site: right antecubital; 20:10 Follow up: Response: No adverse reaction; IV Status: Completed infusion me1 20:09 Drug: fentaNYL (PF) IVP 25 mcg IVP once Route: IVP; Site: right antecubital; me1 20:23 Follow up: Response: No adverse reaction; Pain is decreased me1 20:09 Drug: Ondansetron IVP 4 mg IVP once; over 2 minutes Route: IVP; Site: right antecubital;me1 20:23 Follow up: Response: No adverse reaction; Nausea is decreased me1 Disposition Summary: 01/02/24 20:00 Hospitalization Ordered Notes: Hospitalization Status: Inpatient Admission kb Provider: Cecil Boss Location: Telemetry/MedSurg (Inpatient) kb Condition: Stable kb Problem: new kb Symptoms: are unchanged kb Bed/Room Type: Standard kb Room Assignment: 406(01/02/24 23:12) kl Diagnosis - Severe sepsis without septic shock kb - Pyelonephritis acute kb - Abnormal results of liver function studies kb Forms: - Medication Reconciliation Form kb - SBAR form kb - Leadership Thank You Letter kb Signatures: Dispatcher [employer] Katelynn Melendez, OUTDOOR LANDSCAPE ARCHITECT-C OUTDOOR LANDSCAPE ARCHITECT-Anitha Mesa, RN RN Josseline Smiley RN RN Geovanna Apple RN RN ld1 Jamila Philippe RN RN me1 Liz Anderson RN vc1 Corrections: (The following items were deleted from the chart) 23:12 20:00 jimenez josé
--- NOTE | 2024-01-02 20:01 | ER ---
[facility]urse[facility] Name: Maria Del Rosario Joseph Age: 43 yrs Sex: Female : 1980 Arrival Date: 01/02/2024 Time: 17:32 Bed 13 Private MD: Diagnosis: Severe sepsis without septic shock;Pyelonephritis acute;Abnormal results of liver function studies Presentation: 01/01 17:44 Chief complaint: Fever and body aches x 2 days, nausea and vomit x 1 today. Coronavirus hb screen: Client presents with at least one sign or symptom that may indicate coronavirus-19. Standard/surgical mask placed on the client. Provider contacted for isolation considerations. Ebola Screen: No symptoms or risks identified at this time. Initial Sepsis Screen: Does the patient meet any 2 criteria? HR > 90 bpm. No. Patient's initial sepsis screen is negative. Does the patient have a suspected source of infection? No. Patient's initial sepsis screen is negative. Risk Assessment: Do you want to hurt yourself or someone else? Patient reports no desire to harm self or others. Onset of symptoms was January 01, 2024. 17:44 Method Of Arrival: Ambulatory hb 17:44 Acuity: BLAYNE 2 hb Triage Assessment: 17:45 General: Appears in no apparent distress. uncomfortable, Behavior is calm, cooperative. hb Pain: Pain currently is 9 out of 10 on a pain scale. Neuro: Level of Consciousness is awake, alert, obeys commands, Oriented to person, place, time, situation. Cardiovascular: Patient's skin is warm and dry. Rhythm is sinus tachycardia. Respiratory: Respiratory effort is even, unlabored, Respiratory pattern is regular, symmetrical. GI: Reports nausea, vomiting. Musculoskeletal: Reports body aches. Historical: - Allergies: 17:45 Toradol; hb - PMHx: 17:45 RA; hb - PSHx: 17:45 section; Cholecystectomy; hysterectomy; hb - Immunization history:: Adult Immunizations up to date. - Social history:: Smoking status: Patient denies any tobacco usage or history of. Screenin:09 [facility] ED Fall Risk Assessment (Adult) History of falling in the last 3 months, ld1 including since admission No falls in past 3 months (0 pts). Abuse screen: Denies threats or abuse. Denies injuries from another. Nutritional screening: No deficits noted. Tuberculosis screening: No symptoms or risk factors identified. Assessment: 18:28 General: Appears in no apparent distress. uncomfortable, Behavior is cooperative, ld1 anxious. Pain: Denies pain. Neuro: Level of Consciousness is awake, alert, obeys commands, Oriented to person, place, time, situation. Cardiovascular: Capillary refill < 3 seconds Patient's skin is warm and dry. Respiratory: Airway is patent Respiratory effort is even, unlabored. GI: Abdomen is flat, non-distended. : No signs and/or symptoms were reported regarding the genitourinary system. EENT: No signs and/or symptoms were reported regarding the EENT system. Derm: Skin temperature is warm. Musculoskeletal: No signs and/or symptoms reported regarding the musculoskeletal system. 19:25 General: Appears uncomfortable, Behavior is cooperative, appropriate for age. Pain: me1 Denies pain. Neuro: Level of Consciousness is awake, alert, obeys commands, Oriented to person, place, time, situation. Cardiovascular: Capillary refill < 3 seconds Patient's skin is warm and dry. Respiratory: Airway is patent Respiratory effort is even, unlabored, Respiratory pattern is regular, symmetrical. GI: Abdomen is flat. : No signs and/or symptoms were reported regarding the genitourinary system. EENT: No signs and/or symptoms were reported regarding the EENT system. Derm: Skin is. Musculoskeletal: No signs and/or symptoms reported regarding the musculoskeletal system. 23:00 Reassessment: Patient appears in no apparent distress at this time. No changes from vc1 previously documented assessment. Patient and/or family updated on plan of care and expected duration. Pain level reassessed. Patient is alert, oriented x 3, equal unlabored respirations, skin warm/dry/pink. 01/02 00:00 Reassessment: Patient appears in no apparent distress at this time. No changes from vc1 previously documented assessment. Patient and/or family updated on plan of care and expected duration. Pain level reassessed. Patient is alert, oriented x 3, equal unlabored respirations, skin warm/dry/pink. Vital Signs: 01/01 17:44 BP 142 / 97; Pulse 144; Resp 20; Temp 99.5(O); Pulse Ox 99% ; Weight 66.22 kg; Height 4 hb ft. 11 in. ; Pain 9/10; 17:58 Temp 99.1(O); ld1 18:09 Temp 99.1(O); ld1 18:28 BP 138 / 85; Pulse 119; Resp 18; Pulse Ox 100% on R/A; ld1 19:27 BP 102 / 70; Pulse 115; Resp 16; Pulse Ox 99% on R/A; ld1 20:30 BP 100 / 71; Pulse 101; Resp 16; Pulse Ox 98% on R/A; me1 21:31 BP 99 / 68; Pulse 111; Resp 16; Pulse Ox 99% on R/A; me1 21:31 BP 91 / 59; Pulse 105; Resp 16; Pulse Ox 99% on R/A; me1 23:15 BP 84 / 63; Pulse 110; Resp 15; Pulse Ox 100% ; vc1 23:46 BP 97 / 59; Pulse 103; Resp 15; Pulse Ox 100% ; vc1 17:44 Body Mass Index 29.49 (66.22 kg, 149.86 cm) hb 17:44 Pain Scale: Adult hb ED Course: 17:35 Patient arrived in ED. ae5 17:36 Katelynn Marin FNP-C is PHCP. kb 17:36 Wili Garcia MD is Attending Physician. kb 17:45 Triage completed. hb 17:46 Arm band placed on. hb 17:47 Geovanna Apple, RN is Primary Nurse. ld1 18:09 Patient has correct armband on for positive identification. Placed in gown. Bed in low ld1 position. Call light in reach. Side rails up X2. shelter monitor on. Pulse ox on. NIBP on. Door closed. Noise minimized. 18:09 No provider procedures requiring assistance completed. Inserted saline lock: 20 gauge ld1 in right antecubital area, using aseptic technique. Blood collected. 18:27 Blood Culture Adult (2) Sent. ld1 18:27 Lactate w/ 2H reflex if indic. Sent. ld1 18:27 Protime (+inr) Sent. ld1 18:27 Ptt, Activated Sent. ld1 18:27 CBC with Diff Sent. ld1 18:27 CMP Sent. ld1 18:28 Urine Culture Sent. ld1 18:28 CBC with Diff Sent. ld1 18:28 CMP Sent. ld1 18:28 COVID-19 SARS RT PCR Sent. ld1 18:28 Flu Sent. ld1 18:44 Chest Single View XRAY In Process Unspecified. EDMS 18:47 Urine Culture Sent. ld1 19:07 CT Abd/Pelvis - IV Contrast Only In Process Unspecified. EDMS 20:00 Belinda Boss is Hospitalizing Provider. kb 20:00 Cecil Boss MD is Hospitalizing Provider. kb 23:00 Report received from JUSTINE Marino. vc1 23:30 Door closed. Warm blanket given. vc1 01/02 00:10 Patient admitted, IV remains in place. vc1 00:44 Provided Education on: sepsis. vc1 Administered Medications: 01/01 17:58 Drug: Ibuprofen PO 600 mg PO once Route: PO; ld1 23:00 Follow up: Response: No adverse reaction vc1 18:27 Drug: NS 0.9% IV (30 ml/kg) 30 ml/kg IV at bolus once; Sepsis Protocol Route: IV; Rate: ld1 bolus; Site: right antecubital; 20:10 Follow up: Response: No adverse reaction; IV Status: Completed infusion; IV Intake: me1 1985ml 20:09 Drug: Rocephin IV 1 grams IV at calculated rate once; Given slow IV push per pharmacy me1 instructions Route: IV; Rate: calculated rate; Site: right antecubital; 20:10 Follow up: Response: No adverse reaction; IV Status: Completed infusion me1 20:09 Drug: fentaNYL (PF) IVP 25 mcg IVP once Route: IVP; Site: right antecubital; me1 20:23 Follow up: Response: No adverse reaction; Pain is decreased me1 20:09 Drug: Ondansetron IVP 4 mg IVP once; over 2 minutes Route: IVP; Site: right antecubital;me1 20:23 Follow up: Response: No adverse reaction; Nausea is decreased me1 Medication: 18:09 VIS not applicable for this client. ld1 Intake: 20:10 IV: 1985ml; Total: 1986ml. me1 Outcome: 20:00 Decision to Hospitalize by Provider. kb 01/02 00:10 Condition: stable vc1 Instructed on the need for admit, 00:43 Admitted to Tele accompanied by tech, via wheelchair, room 406, Report called to faxed vc1 report at 0002 00:44 Patient left the ED. [facility] Signatures: Dispatcher [employer] EDKatelynn Bolanos, ARMED GUARD-C ARMED GUARD-Ckb Josseline Guerrero, RN JUSTINE Geovanna Apple RN RN [facility] Liz Anderson, RN RN [facility] Jamila Philippe, RN RN [facility] Jacki Parmar ae5 Corrections: (The following items were deleted from the chart) 01/01 17:46 17:44 Chief complaint: Fever and body aches x 2 days. hb 19:37 19:25 General: Appears uncomfortable, Behavior is cooperative, appropriate for age, [place] [id number] 19:37 19:25 Pain: Denies pain. [place] [id number] 19:37 19:25 Neuro: Level of Consciousness is awake, alert, obeys commands, Oriented to [facility] person, place, time, situation, [facility] 19:37 19:25 Cardiovascular: Capillary refill < 3 seconds Patient's skin is warm and dry. [place] [id number] 19:37 19:25 Respiratory: Airway is patent Respiratory effort is even, unlabored, Respiratory nd1 pattern is regular, symmetrical, [facility] 19:37 19:25 GI: Abdomen is flat, [place] [id number] 19:37 19:25 : No signs and/or symptoms were reported regarding the genitourinary system. [facility] 19:37 19:25 EENT: No signs and/or symptoms were reported regarding the EENT system. [place] [id number] 19:37 19:25 Derm: Skin is [place] [id number] 19:37 19:25 Musculoskeletal: No signs and/or symptoms reported regarding the musculoskeletal [facility] system. [facility] 20:10 20:09 Response: No adverse reaction; IV Status: Completed infusion [place] [id number] 01/02 00:44 00:43 Admitted to [place] [id number]
[2024-01-02] MEDS ORDERED: CEFTRIAXONE 1000 MG/VIAL ONE (20:03)
[2024-01-02] MEDS ORDERED: FENTANYL CITR 100 MCG/2 ML ONE (20:03)
[2024-01-02] MEDS ORDERED: ONDANSETRON 4 MG/2 ML VIAL ONE (20:03)
--- NOTE | 2024-01-02 22:35 | P.HP ---
Certification for Inpatient Patient admitted to: Inpatient With expected LOS: >2 Midnights Patient will require the following post-hospital care: None Practitioner: I am a practitioner with admitting privileges, knowledge of patient current condition, hospital course, and medical plan of care. Services: Services provided to patient in accordance with Admission requirements found in Title 42 Section 412.3 of the Code of Federal Regulations Patient History Date of Service: 01/02/24 Reason for admission: Pyelonephritis; elevated liver enzymes History of Present Illness: Patient is a 43-year-old female who comes into the hospital with abdominal pain along with nausea. Patient states she has been having some pressure around the vaginal region. Otherwise, she denies any significant complaints. This morning she was having some fevers with chills. She states the fever was subjective. She started having some flank tenderness she became real nauseated. She decided to come into the emergency room for further evaluation. In the emergency room, patient had labs which revealed elevated liver enzymes. Patient also had imaging studies which revealed pyelonephritis. Urine analysis showed a significant leukocytosis with bacteria in the urine. Patient will be admitted for pyelonephritis. Patient is not nauseated or vomiting. She is tolerating her diet. On exam she does have some flank tenderness. Patient denies any other complaints. Patient denies any vaginal discharge. She denies any other complaints. Patient will be admitted to the hospital for observation hospitalization. Allergies ketorolac [From Toradol] Allergy (Unknown, Verified 01/02/24 22:19) Hives - Past Medical/Surgical History Past Medical History: Patient denies medical history -: x 2 -: Normal vaginal delivery x 4 - Family History Father Family History: Reviewed- Non-Contributory - Social History Smoking Status: Never smoker Alcohol use: No CD- Drugs: No Review of Systems 10-point ROS is otherwise unremarkable Physical Examination - Vital Signs Temperature: 99 F (Vitals have been reviewed) - Physical Exam General: Alert, In no apparent distress, Oriented x3 HEENT: Atraumatic, PERRLA, Mucous membr. moist/pink, EOMI, Sclerae nonicteric Neck: Supple, 2+ carotid pulse no bruit, No LAD, Without JVD or thyroid abnormality Respiratory: Clear to auscultation bilaterally, Normal air movement Cardiovascular: Regular rate/rhythm, Normal S1 S2, No murmurs Gastrointestinal: Soft and benign, Non-distended, No rebound, No guarding, Tenderness (flank) Musculoskeletal: No clubbing, No tenderness Integumentary: No rashes Neurological: Normal gait, Normal speech, Normal strength at 5/5 x4 extr, Normal tone, Sensation intact, Cranial nerves 3-12 intact, Normal affect Lymphatics: No axilla or inguinal lymphadenopathy - Studies Laboratory Data (last 24 hrs) 01/02/24 01/02/24 01/02/24 18:19 18:19 18:19 WBC 6.20 Hgb 11.9 L Hct 34.5 L Plt Count 273 PT 12.7 H INR 1.16 APTT 24.8 Sodium 138 Potassium 3.3 L BUN 9 Creatinine 0.92 Glucose 96 Total Bilirubin 1.8 H AST 163 H ALT 150 H Alkaline Phosphatase 119 H Microbiology Data (last 24 hrs): 01/02/24 18:02 Nasopharnyx Influenza Type A Antigen Screen - Final 01/02/24 18:02 Nasopharnyx Influenza Type B Antigen Screen - Final Assessment & Plan - Problems (Diagnosis) (1) Pyelonephritis Current Visit: Yes Status: Acute (2) Elevated liver enzymes Current Visit: Yes Status: Acute - Plan Plan: 1. Patient with pyelonephritis; continue with IV fluids and IV antibiotics. Patient is tolerating diet. We could probably switch over to oral antibiotic therapy in the morning as long as patient is clinically improving. Continue with antiemetics as needed. Continue with pain control and continue with medication for flank tenderness. Awaiting for diagnostic studies and lab testing prior to discharge. 2. Patient with elevated liver enzymes and elevated bilirubin; abdominal ultrasound pending. CT abdomen pelvis without any liver pathology noted. GI consultation pending. 3. GI DVT prophylaxis Discharge Plan: Home Plan to discharge in: 24 Hours - Advance Directives Does patient have a Living Will: No Does patient have a Durable POA for Healthcare: No - Code Status/Comfort Care Code Status Assessed: Yes Code Status: Full Code Critical Care: No Time Spent Managing PTS Care (In Minutes): 45
[2024-01-02] MEDS ORDERED: NA CHLORIDE 0.9% 500 ML ONE (22:54)
[2024-01-02] MEDS ORDERED: NA CHLORIDE 0.9% 1,000 ML ONE (22:54)
[2024-01-02] MEDS: NA CHLORIDE 0.9% 1,000 ML IV SCH (23:00)
[2024-01-02] MEDS: NA CHLORIDE 0.9% 500 ML IV SCH (23:01)
[2024-01-02] MEDS ORDERED: ACETAMINOPHEN 500 MG TAB ONE (23:04)
[2024-01-02] MEDS: ACETAMINOPHEN 500 MG TAB PO PRN (23:09)
[2024-01-03] MEDS: PIPER TAZO 3.375 GM in NA CHLORIDE 0.9% 100 ML IV SCH (00:56)
[2024-01-03 01:27] VITALS: BMI 29.5
[2024-01-03] MEDS: ONDANSETRON 4 MG/2 ML VIAL IV PRN (03:55)
[2024-01-03] MEDS: MORPHINE 2 MG/ML SYR IV PRN (05:22)
[2024-01-03 06:13] LABS: Absolute Eosinophils 0.1 K/uL (0-0.5); Absolute Lymphocytes (CBC) 0.9 K/uL (0.7-4.9); Absolute Monocytes 0.5 K/uL (0.1-1.3); Absolute Neutrophil 9.3 K/uL (1.8-8.0); Basophils % 0.3 % (0-1.3); Eosinophils % 0.7 % (0-4.4); Hematocrit 31.1 % (36.0-45.0); Hemoglobin 10.4 g/dL (12.0-15.0); MCH 30.7 pg (27.0-35.0); MCHC 33.6 g/dL (32.0-36.0); MCV 91.1 fL (80-100); MPV 8.3 fL (7.6-11.3); Monocytes % 4.4 % (3.3-12.3); Neutrophils % 86.6 % (41.7-73.7); Platelets 228 thou/uL (152-406); RBC Red Blood Cell Count 3.41 M/uL (3.86-4.86); Red Cell Distribution Width 13.9 % (12.1-15.2)
[2024-01-03 06:30] LABS: Albumin 2.3 g/dL (3.4-5.0); Albumin/Globulin Ratio 0.7 (1.1-1.8); Anion Gap 6.6 mEq/L (5.0-15.0); Bilirubin Total 1.1 mg/dL (0.2-1.0); Globulin 3.4 g/dL (2.3-3.5); Potassium 3.6 mEq/L (3.5-5.1); Protein, Total 5.7 g/dL (6.4-8.2)
[2024-01-03 06:39] LABS: PTT, Activated Partial Thromb 26.5 SECONDS (24.3-36.9); Protime INR 1.28
--- NOTE | 2024-01-03 06:44 | P.PN ---
Date of Service: 01/03/24 Subjective: Feeling better today still with flank pain/tenderness but improved compared to last night per patient feels slight pressure when urinating otherwise denies other urinary symptoms. voiding without issues. Denies n/v/d afebrile ROS: 10 point ROS as noted above, otherwise negative Physical Exam: GEN: Alert, oriented, NAD HEENT: Normal conjunctiva, sclera anicteric CV: Regular rate and rhythm, no edema Pulm: Nonlabored respirations on room air, clear bilaterally ABD: Soft, +right flank tenderness, nondistended Neuro: Normal speech, normal affect vitals reviewed Problem List: acute right pyelonephritis, mild duplication of R ureter Severe iron deficiency anemia Transaminitis Prominent diffuse fatty liver Small left renal calculi acute right pyelonephritis, mild duplication of R ureter Reports flank pain / pressure / subjective fever & chills last ~[address] abdomen (01/01): Enhancement of the wall of the right ureters probably indicating infection abdominal u/s (01/02): prominent diffuse fatty liver, small LT renal calculi, no hydro bilaterally. given rocephin in ED Blood cx (01/01): pending urine cx (01/01): 3+ GNR continue empiric zosyn (01/02-) PRN analgesics / antiemetics Severe iron deficiency anemia iron studies this hospitalization consistent with severe iron deficiency anemia (iron < 10, tsat% 4.2) would benefit from iron supplementation. hold off on IV iron given acute infxn Transaminitis Prominent diffuse fatty liver T. bili 1.8 / AST 163 / ALT 150 / ALP 119 on admission improving overnight abdominal u/s with prominent diffuse fatty liver GI consulted - workup sent; f/u in office Code: Full Dispo: Home, 2+ days pending cx results for final abx choice / LFTs improve
[2024-01-03 07:24] LABS: Hepatitis B Core IgM Nonreactive (Nonreactive); Hepatitis B surface AG Interp. Nonreactive (Nonreactive); Hepatitis C Virus Ab Nonreactive (Nonreactive)
[2024-01-03 07:25] LABS: HBsAG Nonreactive Report Report
--- NOTE | 2024-01-03 08:18 | RAD REPORT ---
EXAM DESCRIPTION: US - Abdomen Exam Complete - 01/03/2024 5:28 am CLINICAL HISTORY: Abdominal pain. pyelonephritis/elevated liver enzymes COMPARISON: <Comparisons> FINDINGS: Diffuse fatty liver pattern is seen. No focal liver lesions or intrahepatic biliary dilata tion is seen. Cholecystectomy. Common bile duct is normal in caliber measuring 5 millimeters. Both kidneys are normal in size, shape and echotexture. Small left renal calculi noted. No hydronephr osis of either kidney. The spleen is normal in size measuring 8 centimeters. The pancreas and aorta are obscured by bowel gas. The visualized aspects of the IVC are grossly normal. IMPRESSION: Prominent diffuse fatty liver. Small left renal calculi without hydronephrosis.
[2024-01-03] MEDS: hydrOXYzine HCL 25 MG TAB PO PRN (08:52)
[2024-01-03 10:44] LABS: Transferrin 170 mg/dL (200-360)
[2024-01-03 10:58] LABS: Iron < 10.0 ug/dL (50-170)
[2024-01-03 11:41] LABS: Hepatitis B Core Ab, Total Nonreactive (Nonreactive)
[2024-01-03 11:46] LABS: Hepatitis B Surface Ab - Quant < 3.10 mIU/mL (<8.0)
--- NOTE | 2024-01-03 14:00 | EKG ---
Test Date: 2024-01-02 Test Time: 18:24:42 Senior Product Consultant: Marixa TREVIÑO MEASUREMENT RESULTS: Intervals: Rate: 114 NM: 158 QRSD: 84 QT: 316 QTc: 435 [place]: P: 39 NM: 158 QRS: 61 T: 2 INTERPRETIVE STATEMENTS: Sinus tachycardia Otherwise normal ECG Compared to ECG 07/10/2023 09:30:59 Sinus rhythm no longer present Electronically Signed On 01-03-24 13:59:28 CDT by Amando Piña
[2024-01-04] MEDS: NA CHLORIDE 0.9% 1,000 ML IV SCH (02:03)
[2024-01-04 05:37] LABS: Absolute Eosinophils 0.1 K/uL (0-0.5); Absolute Lymphocytes (CBC) 0.8 K/uL (0.7-4.9); Absolute Neutrophil 9.9 K/uL (1.8-8.0); Basophils % 0.3 % (0-1.3); Eosinophils % 0.5 % (0-4.4); Hematocrit 33.1 % (36.0-45.0); Lymphocytes % 6.6 % (15.3-44.8); MCH 30.3 pg (27.0-35.0); MCHC 33.3 g/dL (32.0-36.0); MCV 91.1 fL (80-100); MPV 8.9 fL (7.6-11.3); Monocytes % 8.7 % (3.3-12.3); Neutrophils % 83.9 % (41.7-73.7); Platelets 250 thou/uL (152-406); RBC Red Blood Cell Count 3.64 M/uL (3.86-4.86); Red Cell Distribution Width 13.9 % (12.1-15.2)
[2024-01-04 05:55] LABS: Albumin 2.3 g/dL (3.4-5.0); Albumin/Globulin Ratio 0.6 (1.1-1.8); Anion Gap 9.4 mEq/L (5.0-15.0); Bilirubin Total 0.5 mg/dL (0.2-1.0); Globulin 3.7 g/dL (2.3-3.5); Magnesium 1.8 mg/dL (1.6-2.4); Potassium 3.4 mEq/L (3.5-5.1)
--- NOTE | 2024-01-04 08:19 | P.PN ---
Date of Service: 01/04/24 Subjective: Feeling better today reports persistent "tension" headache since ~5 am yesterday. otherwise no new issues flank pain resolved last night afebrile slight improvement in appetite ROS: 10 point ROS as noted above, otherwise negative Physical Exam: GEN: Alert, oriented, NAD HEENT: Normal conjunctiva, sclera anicteric CV: Regular rate and rhythm, no edema Pulm: Nonlabored respirations on room air, clear bilaterally ABD: Soft, nontender, nondistended Neuro: Normal speech, normal affect vitals reviewed Problem List: acute right pyelonephritis, mild duplication of R ureter Severe iron deficiency anemia Transaminitis, transient Prominent diffuse fatty liver Small left renal calculi h/o acid reflux acute right pyelonephritis, mild duplication of R ureter Reports flank pain / pressure / subjective fever & chills for ~2 days prior to admission. CT abdomen (01/01): Enhancement of the wall of the right ureters probably indicating infection. 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 given rocephin in ED Blood cx (01/01): GNR in 10/11 bottles urine cx (01/01): E. coli continue empiric zosyn (01/02-) ID consulted 01/02 f/u final cultures continue IV antibiotics today, if continues to do well / wbc improves; dc home with PO cipro PRN analgesics / antiemetics Tylenol #3 added IVF dc'd (01/03) Severe iron deficiency anemia iron studies this hospitalization consistent with severe iron deficiency anemia (iron < 10, tsat% 4.2) would benefit from iron supplementation. hold off on IV iron given acute infxn will need to start oral iron supplementation on discharge Transaminitis, transient Prominent diffuse fatty liver T. bili 1.8 / AST 163 / ALT 150 / ALP 119 on admission LFTs continue to improve daily abdominal u/s with prominent diffuse fatty liver GI consulted - workup sent; f/u in office Code: Full Dispo: Home, 1-2 days pending cx results for final abx choice
[2024-01-04 09:11] VITALS: O2SAT 97
[2024-01-04] MEDS: CODEINE 30MG/APAP 300MG TAB PO PRN (13:14)
[2024-01-04] MEDS: CIPROFLOXACIN 400mg IV 400 MG/200 ML BAG IV SCH (23:13)
[2024-01-05 03:45] LABS: Absolute Lymphocytes (CBC) 1.1 K/uL (0.7-4.9); Absolute Monocytes 0.8 K/uL (0.1-1.3); Absolute Neutrophil 4.3 K/uL (1.8-8.0); Basophils % 0.5 % (0-1.3); Eosinophils % 0.7 % (0-4.4); Hematocrit 33.3 % (36.0-45.0); Hemoglobin 11.2 g/dL (12.0-15.0); Lymphocytes % 17.9 % (15.3-44.8); MCH 30.2 pg (27.0-35.0); MCHC 33.7 g/dL (32.0-36.0); MCV 89.6 fL (80-100); MPV 8.7 fL (7.6-11.3); Monocytes % 12.8 % (3.3-12.3); Neutrophils % 68.1 % (41.7-73.7); Platelets 280 thou/uL (152-406); RBC Red Blood Cell Count 3.72 M/uL (3.86-4.86); Red Cell Distribution Width 14.1 % (12.1-15.2)
[2024-01-05 04:02] LABS: Albumin 2.3 g/dL (3.4-5.0); Albumin/Globulin Ratio 0.6 (1.1-1.8); Anion Gap 8.3 mEq/L (5.0-15.0); Bilirubin Total 0.4 mg/dL (0.2-1.0); Globulin 3.9 g/dL (2.3-3.5); Potassium 3.3 mEq/L (3.5-5.1); Protein, Total 6.2 g/dL (6.4-8.2)
[2024-01-05] MEDS: METOCLOPRAMIDE 10 MG/2mL INJ IV ONE (04:02)
--- NOTE | 2024-01-05 07:01 | P.PN ---
Date of Service: 01/05/24 Subjective: febrile overnight - zosyn switched to cipro last night after fever reports episode of flank pain / headache ~same time as fever; improved once fever resolved otherwise feeling better today appetite improving slightly ROS: 10 point ROS as noted above, otherwise negative Physical Exam: GEN: Alert, oriented, NAD HEENT: Normal conjunctiva, sclera anicteric CV: Regular rate and rhythm, no edema Pulm: Nonlabored respirations on room air, clear bilaterally ABD: Soft, nontender, nondistended Neuro: Normal speech, normal affect vitals reviewed Problem List: sepsis secondary to acute right pyelonephritis with E.coli Bacteremia duplication of R ureter Severe iron deficiency anemia Transaminitis, transient Prominent diffuse fatty liver Small left renal calculi h/o acid reflux sepsis secondary to acute right pyelonephritis with E.coli Bacteremia duplication of R ureter Reports flank pain / pressure / subjective fever & chills for ~2 days prior to admission. CT abdomen (01/01): Enhancement of the wall of the right ureters probably indicating infection. 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 given rocephin in ED Blood cx (01/01): E.coli in 2/4 bottles urine cx (01/01): E. coli IV zosyn (01/02-01/03) switched to IV cipro given fever overnight continue cipro (01/03-) leukocytosis resolved ID following continue IV antibiotics today, if continues to do well / remains afebrile > 24 hours; dc home with PO cipro PRN analgesics / antiemetics Tylenol #3 added Severe iron deficiency anemia iron studies this hospitalization consistent with severe iron deficiency anemia (iron < 10, tsat% 4.2) would benefit from iron supplementation. hold off on IV iron given acute infxn will need to start oral iron supplementation on discharge Transaminitis, transient Prominent diffuse fatty liver unclear etiology of transaminitis - uncertain if related to sepsis vs other underlying pathology abdominal u/s with prominent diffuse fatty liver and workup noted severe iron deficiency anemia which could contribute further workup ordered and sent per Dr. Titus , GI. T. bili 1.8 / AST 163 / ALT 150 / ALP 119 on admission LFTs continue to improve daily Code: Full Dispo: Home, 1 day pending afebrile > 24 hours / remains stable
[2024-01-05] MEDS: ONDANSETRON 4 MG/2 ML VIAL IV PRN (20:12)
[2024-01-05] MEDS: ACETAMIN/CAFFEINE/BUTALB TAB PO ONE (23:10)
[2024-01-06 04:40] LABS: Absolute Eosinophils 0.1 K/uL (0-0.5); Absolute Lymphocytes (CBC) 1.5 K/uL (0.7-4.9); Absolute Monocytes 0.9 K/uL (0.1-1.3); Absolute Neutrophil 2.6 K/uL (1.8-8.0); Basophils % 0.7 % (0-1.3); Eosinophils % 1.4 % (0-4.4); Hemoglobin 11.4 g/dL (12.0-15.0); Lymphocytes % 28.9 % (15.3-44.8); MCH 29.7 pg (27.0-35.0); MCHC 33.5 g/dL (32.0-36.0); MCV 88.8 fL (80-100); MPV 8.5 fL (7.6-11.3); Monocytes % 18.1 % (3.3-12.3); Neutrophils % 50.9 % (41.7-73.7); Platelets 322 thou/uL (152-406); RBC Red Blood Cell Count 3.83 M/uL (3.86-4.86); Red Cell Distribution Width 13.9 % (12.1-15.2)
[2024-01-06 04:58] LABS: Albumin 2.5 g/dL (3.4-5.0); Albumin/Globulin Ratio 0.6 (1.1-1.8); Anion Gap 9.2 mEq/L (5.0-15.0); Bilirubin Total 0.3 mg/dL (0.2-1.0); Globulin 3.9 g/dL (2.3-3.5); Magnesium 1.9 mg/dL (1.6-2.4); Potassium 3.2 mEq/L (3.5-5.1); Protein, Total 6.4 g/dL (6.4-8.2)
[2024-01-06] MEDS: POTASSIUM 25 MEQ EFFERV TAB PO ONE (08:56)
[2024-01-06] MEDS ORDERED: PROMETHAZINE INJ 25 MG/ML AMP IV ONE (10:06)
[2024-01-06 10:38] VITALS: BP 138/72; TEMP 97
--- NOTE | 2024-01-06 11:11 | P.DS ---
Admission Date: 01/03/24 Discharge Date: 01/06/24 Disposition: TRANSFER TO [facility] Reason for Admission: Pyelonephritis; elevated liver enzymes Brief History of Present Illness: 43yo F, PMH: hx of acid reflux Patient who comes into the hospital with abdominal pain along with nausea. Patient states she has been having some pressure around the vaginal region. Otherwise, she denies any significant complaints. This morning she was having some fevers with chills. She states the fever was subjective. She started having some flank tenderness she became real nauseated. She decided to come into the emergency room for further evaluation. In the emergency room, patient had labs which revealed elevated liver enzymes. Patient also had imaging studies which revealed pyelonephritis. Urine analysis showed a significant leukocytosis with bacteria in the urine. Patient will be admitted for pyelonephritis. Patient is not nauseated or vomiting. She is tolerating her diet. On exam she does have some flank tenderness. Patient denies any other complaints. Patient denies any vaginal discharge. She denies any other complaints. Patient will be admitted to the hospital for observation hospitalization. Hospital Course: Problem List: sepsis secondary to acute right pyelonephritis with E.coli Bacteremia duplication of R ureter Severe iron deficiency anemia Transaminitis, transient Prominent diffuse fatty liver Small left renal calculi h/o acid reflux Patient presented with right flank pain, nausea, subjective fever & chills last 2 days and was found to have mild acute right pyelonephritis complicated by E. coli bacteremia. 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 Patient was started on IV zosyn however continued with low grade temps / fever intermittently. Antibiotics were switched to IV ciprofloxacin and patient continue to clinically improve daily without further episodes of fever for the rest of her hospitalization. Blood cultures were noted to grow E. coli in 2/4 bottles. Discussed with infectious disease, given continued clinical improvement, and afebrile > 24 hours, patient is to continue oral ciprofloxacin on discharge for ~7 more days for a total of ~10 days of antibiotic treatment. Patient was feeling better, flank pain improved, leukocytosis resolved, nausea improved and was deemed stable for discharge. LFTs were elevated on admission (T. bili 1.8 / AST 163 / ALT 150 / ALP 119) and improved with time. LFTs were all within normal limits on day of discharge with exception of ALT. (ALT borderline elevated 57 on discharge; normal limit cutoff is 56). Unclear etiology of transient transaminitis, possibly related to sepsis/infxn or other underlying pathology. Abdominal ultrasound noted prominent diffuse fatty liver. ALEXANDRE Adrian, was consulted and had further workup/labs sent out - to be followed up as outpatient in office in ~1-2 weeks for further discussion. Advised to repeat blood work in ~1 week to monitor LFTs. Iron studies this hospitalization were consistent with severe iron deficiency anemia (iron < 10, tsat% 4.2). Its possible iron deficiency could be contributing / playing a role in transaminitis. IV iron was held this hospitalization given acute infxn, and discussed with patient need to start oral supplementation on discharge. Medications: Ciprofloxacin x7 more days over the counter iron tablets Prescriptions sent to [facility] [place] to [facility] [place] and limited pharmacies are open today. If any problems acquiring prescriptions, call hospital ask for nurse station on 2nd/4th floor for further assistance. Follow up: PCP 3-5 days ALEXANDRE Adrian in 1-2 weeks Please call to schedule / confirm appointment Physical Exam: GEN: Alert, oriented, NAD HEENT: Normal conjunctiva, sclera anicteric CV: Regular rate and rhythm, no edema Pulm: Nonlabored respirations on room air, clear bilaterally ABD: Soft, nontender, nondistended Neuro: Normal speech, normal affect Vital Signs/Physical Exam: Temp Pulse Resp BP Pulse Ox 97 F 83 16 138/72 95 01/06/24 08:00 01/06/24 08:00 01/06/24 08:00 01/06/24 08:00 01/06/24 08:00 Laboratory Data at Discharge: WBC 5.10 thou/uL (4.3-10.9) 01/06/24 04:03 Hgb 11.4 g/dL (12.0-15.0) L 01/06/24 04:03 Hct 34.0 % (36.0-45.0) L 01/06/24 04:03 Plt Count 322 thou/uL (152-406) 01/06/24 04:03 PT 14.0 SECONDS (9.5-12.5) H 01/03/24 05:45 INR 1.28 01/03/24 05:45 APTT 26.5 SECONDS (24.3-36.9) 01/03/24 05:45 Sodium 139 mEq/L (136-145) 01/06/24 04:03 Potassium 3.2 mEq/L (3.5-5.1) L 01/06/24 04:03 BUN 6 mg/dL (7-18) L 01/06/24 04:03 Creatinine 0.87 mg/dL (0.55-1.02) 01/06/24 04:03 Glucose 115 mg/dL (74-106) H 01/06/24 04:03 Magnesium 1.9 mg/dL (1.6-2.4) 01/06/24 04:03 Total Bilirubin 0.3 mg/dL (0.2-1.0) 01/06/24 04:03 AST 28 U/L (15-37) 01/06/24 04:03 ALT 57 U/L (13-56) H 01/06/24 04:03 Alkaline Phosphatase 102 U/L (45-117) 01/06/24 04:03 Home Medications: hydrOXYzine pamoate [Hydroxyzine Pamoate] 50 mg PO QIDP PRN 01/03/24 Ciprofloxacin HCl [Cipro 500 MG Tablet] 500 mg PO BID 7 Days #14 tab 01/06/24 New Medications: Ciprofloxacin HCl [Cipro 500 MG Tablet] 500 mg PO BID 7 Days #14 tab Physician Discharge Instructions: Physician Discharge Instructions: Patient presented with right flank pain, nausea, subjective fever & chills last 2 days and was found to have mild acute right pyelonephritis complicated by E. coli bacteremia. 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 Patient was started on IV zosyn however continued with low grade temps / fever intermittently. Antibiotics were switched to IV ciprofloxacin and patient continued to improve daily without further episodes of fever for the rest of her hospitalization. Blood cultures were noted to grow E. coli in 2/4 bottles. Discussed with infectious disease, given continued clinical improvement, and afebrile > 24 hours, patient is to continue oral ciprofloxacin on discharge for ~7 more days for a total of ~10 days of antibiotic treatment. Patient was feeling better, flank pain improved, leukocytosis resolved, nausea improved and was deemed stable for discharge. LFTs were elevated on admission (T. bili 1.8 / AST 163 / ALT 150 / ALP 119) and improved with time. LFTs were all within normal limits on day of discharge with exception of ALT. (ALT borderline elevated 57 on discharge; normal limit cutoff is 56). Unclear etiology of transient transaminitis, possibly related to sepsis/infxn or other underlying pathology. Abdominal ultrasound noted prominent diffuse fatty liver. ALEXANDRE Adrian, was consulted and had further workup/labs sent out - to be followed up as outpatient in office in ~1-2 weeks for further discussion. Advised to repeat blood work in ~1 week to monitor LFTs. Iron studies this hospitalization were consistent with severe iron deficiency anemia (iron < 10, tsat% 4.2). Its possible iron deficiency could be contributing / playing a role in transaminitis. IV iron was held this hospitalization given acute infxn, and discussed with patient need to start oral supplementation on discharge. Medications: Ciprofloxacin x7 more days over the counter iron tablets Prescriptions sent to [facility] in [place] due to it being [facility] and limited pharmacies are open today. If any problems acquiring prescriptions, call hospital ask for nurse station on 2nd/4th floor for further assistance. Follow up: PCP 3-5 days ALEXANDRE Adrian in 1-2 weeks Please call to schedule / confirm appointment Followup: Irving Titus MD [ACTIVE - CAN ADMIT] - 1-2 Weeks (Call for appointment.) YAZAN MILES [Primary Care Provider] - 1 Week (Call for appoitment.)
[2024-01-08 17:08] LABS: Alpha Fetoprotein-Tumor Marker 0.7 ng/mL (<6.1)
== END 2024-01-06 12:15 | disposition home or self-care (01) | DRG 872 ==
LOC: ER 17:32 → ERHOLD 22:24 → 4TH 01-03 00:31 → OBSVTOIN 01-03 14:51
PROVIDERS: ADMIT Hospitalist; ATTEND Hospitalist
DX: A41.51 Sepsis due to Escherichia coli [E. coli] (principal); N10 Acute pyelonephritis; R65.20 Severe sepsis without septic shock; D50.9 Iron deficiency anemia, unspecified; N20.0 Calculus of kidney; Q62.5 Duplication of ureter; R94.5 Abnormal results of liver function studies; R74.01 Elevation of levels of liver transaminase levels; Z88.5 Allergy status to narcotic agent; Z11.52 Encounter for screening for COVID-19; Z90.49 Acquired absence of other specified parts of digestive tract; Z90.710 Acquired absence of both cervix and uterus
CPT/HCPCS: 36415; 71045; 74177; 76700; 80053; 80074; 81001; 81025; 82103; 82105; 82390; 82728; 83540; 83605; 83735; 84466; 85025; 85610; 85730; 86015; 86038; 86255; 86704; 86706; 87040; 87077; 87086; 87088; 87186; 87205; 87635; 87804; 93005; 96365; 96366; 96375; 99285; G0378; J0696; J0744; J2270; J2405; J2543; J2765; J3010; J7030; J7040; Q9967

== ENCOUNTER 2025-07-22 09:47 | Emergency (ER) | payer MEDICARE ==
[2025-07-22] MEDS ORDERED: MECLIZINE HCL 12.5 MG TAB ONE (10:25)
[2025-07-22 10:34] LABS: Influenza A Ag Negative; Influenza B Ag Negative; SARS-CoV-2 Antigen Rapid Res Negative (Negative)
--- NOTE | 2025-07-22 12:34 | EDPHYS ---
Physician Documentation [facility] Name: Maria Del Rosario Joseph Age: 44 yrs Sex: Female : 1980 Arrival Date: 07/22/2025 Time: 09:47 Bed 12 Private MD: ED Physician Wili Garcia HPI: 07/22 12:35 This 44 yrs old Female presents to ER via Ambulatory with complaints of kb Dizziness, Sinus Congestion, Headache. 12:35 Patient is a 44-year-old female who presents for sinus congestion, malaise and cough kb that started 2 weeks ago. States she developed a headache and dizziness this morning so she decided to come in for treatment.. 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 - Infectious Disease History:: Denies. - Social history:: Smoking status: Patient denies any tobacco usage or history of. ROS: 12:31 Constitutional: As per HPI kb Exam: 12:33 Constitutional: This is a well developed, well nourished patient who is awake, alert, kb and in no acute distress. Head/Face: Normocephalic, atraumatic. ENT: Moist Mucous membranes Cardiovascular: Regular rate Respiratory: Respirations even and unlabored. No increased work of breathing. Talking in full sentences Skin: Warm, dry with normal turgor. Normal color. MS/ Extremity: Pulses equal, no cyanosis. Neurovascular intact. Full, normal range of motion. Neuro: Awake and alert, GCS 15, oriented to person, place, time, and situation. 12:33 ENT: TM's: fluid levels, Vital Signs: 10:04 BP 137 / 108; Pulse 72; Resp 17; Temp 97.5; Pulse Ox 96% ; Weight 68.04 kg; Height 4 ll1 ft. 11 in. ; Pain 7/10; 12:46 BP 140 / 97; Pulse 78; Resp 16; Pulse Ox 96% on R/A; ll1 10:04 Body Mass Index 30.30 (68.04 kg, 149.86 cm) ll1 10:04 Pain Scale: Adult ll1 MDM: 09:51 Medical Screening Exam initiated kb 12:34 Differential diagnosis: vertigo, COVID, flu, URI, strep, sinusitis. Data reviewed: kb vital signs, nurses notes. Counseling: I had a detailed discussion with the patient and/or guardian regarding the historical points, exam findings, and any diagnostic results supporting the discharge/admit diagnosis, lab results, the need for outpatient follow up, a family practitioner, to return to the emergency department if symptoms worsen or persist or if there are any questions or concerns that arise at home. ED course: Patient reports symptoms improved after treatment. Will prescribe antibiotics due to symptoms lasting more than 2 weeks.. 07/22 10:07 Order name: COVID-19 Ag + Flu A+B Ag; Complete Time: 10:40 kb 07/22 10:07 Order name: Group A Streptococcus Rapid; Complete Time: 10:31 kb 07/22 10:29 Order name: Throat Culture EDMS Administered Medications: 10:30 Drug: Dexamethasone IM 10 mg IM once Route: IM; Site: right gluteus; ll1 12:48 Follow up: Response: No adverse reaction ll1 10:30 Drug: Meclizine PO 25 mg PO once Route: PO; ll1 12:48 Follow up: Response: No adverse reaction ll1 Disposition: 07/23 07:31 Co-signature as Attending Physician, Wili Garcia MD I agree with the assessment and roscoe plan of care. Disposition Summary: 07/22/25 12:33 Discharge Ordered Notes: Location: Home Condition: Stable Diagnosis - Acute sinusitis, unspecified kb Followup: kb - With: Private Physician - When: 2 - 3 days - Reason: Recheck today's complaints, Continuance of care, Re-evaluation by your physician Followup: kb - With: Emergency Department - When: As needed - Reason: Worsening of condition Discharge Instructions: - Sinusitis, Adult, [id number] kb - Discharge Summary Sheet ll1 Forms: - Medication Reconciliation Form kb - Antibiotic Education kb - Prescription Opioid Use kb - Patient Portal Instructions kb - Leadership Thank You Letter kb - Work release form ll1 Prescriptions: - Augmentin 875-125 mg Oral Tablet - take 1 tablet ORAL route every 12 hours for 10 days; 20 tablet; Refills: 0, kb Product Selection Permitted - Meclizine 25 mg Oral tablet - take 1 tablet ORAL route every 8 hours As needed; 21 tablet; Refills: 0, kb Product Selection Permitted - Prednisone 20 mg Oral Tablet - take 1 tablet ORAL route once daily for 5 days; 5 tablet; Refills: 0, Product kb Selection Permitted Signatures: Dispatcher [employer] EDMS Katelynn Marin, Wili Chawla MD MD cha Lewis, Lynsay RN RN ll1 Corrections: (The following items were deleted from the chart) 07/22 10:08 10:08 COVID-19 Ag + Flu A+B Ag+[id number].LAB.BRZ ordered. EDMS EDMS 10: 10:08 Group A Streptococcus Rapid Sc+I.LAB.BRZ ordered. EDMS EDMS
--- NOTE | 2025-07-22 12:34 | ER ---
Nurse's Notes [facility] Name: Maria Del Rosario Joseph Age: 44 yrs Sex: Female : 1980 Arrival Date: 07/22/2025 Time: 09:47 Bed 12 Private MD: Diagnosis: Acute sinusitis, unspecified Presentation: 07/22 10:04 Chief complaint: Patient states: "allergies" for 2 weeks. Dizziness for 2 days. worse ll1 pain, body aches, nasuea. Coronavirus screen: Client denies travel out of the [place] in the last 14 days. congestion, fatigue, headache, Client presents with at least one sign or symptom that may indicate coronavirus-19. Standard/surgical mask placed on the client. Ebola Screen: Patient denies travel to an Ebola-affected area in the 21 days before illness onset. Initial Sepsis Screen: Does the patient meet any 2 criteria? No. Patient's initial sepsis screen is negative. Does the patient have a suspected source of infection? No. Patient's initial sepsis screen is negative. Risk Assessment: Do you want to hurt yourself or someone else? Patient reports no desire to harm self or others. Onset of symptoms was July 08, 2025. 10:04 Method Of Arrival: Ambulatory ll1 10:04 Acuity: BLAYNE 3 ll1 Triage Assessment: 12:47 Headache History: Denies prior headaches. General: Appears in no apparent distress. ll1 Behavior is calm, cooperative, appropriate for age. 12:47 Pain: Pain currently is 5 out of 10 on a pain scale. Pain began 1 week Also complains ll1 of dizzy. 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 - Infectious Disease History:: Denies. - Social history:: Smoking status: Patient denies any tobacco usage or history of. Screenin:46 [facility] ED Fall Risk Assessment (Adult) History of falling in the last 3 months, ll1 including since admission No falls in past 3 months (0 pts) Confusion or Disorientation No (0 pts) Intoxicated or Sedated No (0 pts) Impaired Gait No (0 pts) Mobility Assist Device Used No (0 pt) Altered Elimination No (0 pt) Score/Fall Risk Level 0 - 2 = Low Risk Maintained a safe environment, Hourly rounding (assess needs \\T\\ fall precautionary measures) done. Abuse screen: Denies threats or abuse. Nutritional screening: No deficits noted. Tuberculosis screening: No symptoms or risk factors identified. Assessment: 10:30 Reassessment: No changes from previously documented assessment. Patient and/or family ll1 updated on plan of care and expected duration. Pain level reassessed. Patient is alert, oriented x 3, equal unlabored respirations, skin warm/dry/pink. 12:01 Reassessment: Patient and/or family updated on plan of care and expected duration. Pain ll1 level reassessed. 12:46 Reassessment: No changes from previously documented assessment. Patient and/or family ll1 updated on plan of care and expected duration. Pain level reassessed. Patient is alert, oriented x 3, equal unlabored respirations, skin warm/dry/pink. Pain: Complains of pain in head Quality of pain is described as aching. Neuro: Reports headache. Vital Signs: 10:04 BP 137 / 108; Pulse 72; Resp 17; Temp 97.5; Pulse Ox 96% ; Weight 68.04 kg; Height 4 ll1 ft. 11 in. ; Pain 7/10; 12:46 BP 140 / 97; Pulse 78; Resp 16; Pulse Ox 96% on R/A; ll1 10:04 Body Mass Index 30.30 (68.04 kg, 149.86 cm) ll1 10:04 Pain Scale: Adult ll1 ED Course: 09:50 Patient arrived in ED. al6 09:51 Katelynn Marin [facility]C [facility] kb 09:51 Wili Garcia MD is Attending Physician. kb 10:06 Triage completed. ll1 10:08 Patient has correct armband on for positive identification. Bed in low position. ll1 Provided Education on: ER procedures and process. 10:11 COVID-19 Ag + Flu A+B Ag Sent. ll1 10:11 Group A Streptococcus Rapid Sent. ll1 10:23 COVID-19 Ag + Flu A+B Ag Sent. ll1 10:23 Group A Streptococcus Rapid Sent. ll1 10:30 Elida Whaley, RN is Primary Nurse. ll1 10:30 Patient placed in an exam room, on a stretcher. ll1 12:47 No provider procedures requiring assistance completed. Patient did not have IV access ll1 during this emergency room visit. Administered Medications: 10:30 Drug: Dexamethasone IM 10 mg IM once Route: IM; Site: right gluteus; ll1 12:48 Follow up: Response: No adverse reaction ll1 10:30 Drug: Meclizine PO 25 mg PO once Route: PO; ll1 12:48 Follow up: Response: No adverse reaction ll1 Medication: 12:48 VIS not applicable for this client. ll1 Outcome: 12:33 Discharge ordered by . jimenez 12:48 Discharged to home ambulatory, ll1 12:48 Condition: stable 12:48 Discharge instructions given to patient, Instructed on discharge instructions, follow up and referral plans. medication usage, Demonstrated understanding of instructions, follow-up care, medications, Prescriptions given X 3, 12:48 Patient left the ED. ll1 Signatures: Katelynn Marin, DIRECTOR MUSEUM OR ZOO-C DIRECTOR MUSEUM OR ZOO-Ckb Elida Whaley, RN RN ll1 Julia Maradiaga Corrections: (The following items were deleted from the chart) 10:08 10:04 68.04 kg; Height 4 ft. 11 in.; BMI: 30.3; Pain 7/10, Adult; ll1 ll1 10:30 10:08 Arm band placed on Patient placed in an exam room, on a stretcher, ll1 ll1
[2025-07-22 12:52] VITALS: TEMP 97.5; O2SAT 96
[2025-07-22 12:54] VITALS: BP 140/97
== END 2025-07-22 12:48 | disposition home or self-care (01) ==
LOC: ER 09:47
DX: J01.90 Acute sinusitis, unspecified (principal); Z11.52 Encounter for screening for COVID-19
CPT/HCPCS: 36415; 87070; 87428; 96372; 99284; J1100; J8597